=== PATIENT | male | born 1995 | race Two or more races ===

== ENCOUNTER 2019-05-05 23:34 | Inpatient (IN) | payer OTHER ==
[~2019-05-05] VITALS: Ht 180.3 cm; Wt 85.4 kg
--- NOTE | 2019-05-06 01:05 | NUR ---
RN OPEN NOTES RECEIVED PATIENT FROM [facility] DIRECT ADMIT VIA EMT. A/O X4. NO SIGNS OF DISTRESS OR DISCOMFORT. BREATHING EVEN AND UNLABORED. STATES PAIN IN R LOWER ABD IS 4/10 AND TOLERABLE AT THIS TIME. IV ACCESS IN LAC, PATENT AND INTACT, NO SIGNS OF REDNESS OR INFILTRATION. ORIENTED PATIENT TO UNIT AND ROOM. SKIN INTACT. BED IN LOW LOCKED POSITION WITH SIDE RAILS X2. CALL LIGHT WITHIN REACH. WILL CONTINUE TO MONITOR.
[2019-05-06 01:15] VITALS: BP 121/67
[2019-05-06] MEDS ORDERED: ONDANSETRON HCL/PF 4 MG/2 ML VIAL IV PRN (02:00)
[2019-05-06] MEDS ORDERED: PIPERACILLIN /TAZOBACTAM 3.375 G VIAL IV ONE (03:19)
[2019-05-06] MEDS: IV D5/ 0.9% NACL 1,000 ML IV PRN (03:30)
[2019-05-06 04:00] VITALS: BP 121/67
[2019-05-06] MEDS ORDERED: PIPERACILLIN /TAZOBACTAM 3.375 G in IV D5W 50 ML IV ONE (04:00)
[2019-05-06] MEDS ORDERED: PIPERACILLIN /TAZOBACTAM 3.375 G in IV D5W 50 ML IV SCH (06:00)
--- NOTE | 2019-05-06 06:56 | NUR ---
RN CLOSING NOTES PATIENT AWAKE IN BED. A/O X4. NO SIGNS OF DISTRESS OR DISCOMFORT. BREATHING EVEN AND UNLABORED. STATES PAIN IN R LOWER ABD IS 5/10 AND TOLERABLE AT THIS TIME. IV ACCESS IN LAC D5NS INFUSING, PATENT AND INTACT, NO SIGNS OF REDNESS OR INFILTRATION. ALL NEEDS MET. NO SIGNIFICANT CHANGES THROUGH THEN NIGHT. BED IN LOW LOCKED POSITION WITH SIDE RAILS X2. CALL LIGHT WITHIN REACH. WILL ENDORSE TO AM SHIFT FOR JESSICA.
[2019-05-06 07:01] LABS: BASOPHILS # (AUTO) 0.1 /CMM (0.0-0.2); BASOPHILS % (AUTO) 1.3 % (0.0-2.0); EOSINOPHILS % (AUTO) 1.9 % (0.0-6.0); HEMATOCRIT 38 % (39-51); HEMOGLOBIN 13.2 g/dL (13.5-17.5); LYMPHOCYTES # (AUTO) 2.2 /CMM (0.8-4.8); MEAN CORPUSCULAR HGB CONC 35 g/dl (31.0-36.0); MEAN CORPUSCULAR VOLUME 86 fL (80-96); MONOCYTES # (AUTO) 0.6 /CMM (0.1-1.30); MONOCYTES % (AUTO) 6.3 % (2.0-12.0); NEUTROPHILS # (AUTO) 6.8 /CMM (1.8-8.9); NEUTROPHILS % (AUTO) 68.5 % (43.0-81.0); PLATELET COUNT (AUTO) 217 /CMM (150-450); RED BLOOD CELL COUNT(AUTO) 4.41 MIL/uL (4.5-6.0); WHITE BLOOD COUNT (AUTO) 9.9 K/uL (4.3-11.0)
--- NOTE | 2019-05-06 07:34 | NUR ---
RN OPENING NOTE PT WAS RECEIVED IN BED AT LOWEST AND LOCKED POSITION WITH SIDE RAILS UP X2, A/ X4 BREATHING EVEN AND UNLABORED ON RA WITH NO S/S OF ANY DISTRESS BUT DOES COMPLAIN OF PAIN IN RLQ 4/5 OUT OF 10, IV IS PATENT AND INTACT WITH IVF RUNNING, SAFETY PRECAUTIONS IN PLACE, CALL LIGHT IN REACH, WILL MONITOR ACCORDINGLY
[2019-05-06 07:44] LABS: ALBUMIN 3.7 g/dL (3.4-5.0); BILIRUBIN,TOTAL 0.9 mg/dL (0.2-1.0); CALCIUM, SERUM 8.6 mg/dL (8.5-10.1); PHOSPHORUS 3.5 mg/dL (2.5-4.9); POTASSIUM 3.6 mmol/L (3.5-5.1); TOTAL PROTEIN, SERUM 7.1 g/dL (6.4-8.2)
[2019-05-06 08:00] VITALS: BP 112/76
--- NOTE | 2019-05-06 08:00 | NUR ---
RN NOTE [employer] INSTALLER MICHAEL FISHER AT BEDSIDE, INFORMED PT THAT SURGERY WILL BE CONSULTED FOR POSSIBLE APPENDECTOMY, PT AWARE
[2019-05-06] MEDS: FAMOTIDINE/PF INJ 20 MG/2 ML VIAL IV SCH ×2 (08:34→20:35)
[2019-05-06] MEDS: PIPERACILLIN /TAZOBACTAM 3.375 G in IV D5W 100 ML IV SCH ×2 (09:15→16:09)
--- NOTE | 2019-05-06 11:04 | NUR ---
RN NOTE MEDICAL RECORDS WAS CALLED AND INFORMED ABOUT NEEDING TO REQUEST INFORMATION FROM [facility]. THEY WERE MADE AWARE THAT THEY ONLY RELEASE INFORMATION. MEDICAL RECORD EMPLOYEE IS AWARE AND INFORMED TO FAX OVER THE RELEASE OF INFORMATION MEDICAL RECORDS FORM TO HER. MEDICAL RECORD FORM WAS FAXED TO OUR MEDICAL RECORD DEPARTMENT AND THEY WILL TRY TO OBTAIN THE CT RESULTS OF THE ABD/PELVIS AT THIS TIME.
--- NOTE | 2019-05-06 11:44 | NUR ---
RN NOTE RAE TORRES SPOKE TO PT MOTHER CANDELARIO VIA PHONE AND EXPLAINED TO HER THE OPTIONS FOR APPENDICITIS TX. INFORMED THAT THEY COULD EITHER GET APPENDECTOMY OR COURSE OF ABX FOR 2 DAYS. PT MOTHER SPOKE TO SON AND I WAS JUST INFORMED THAT PT WOULD LIKE TO JUST RECEIVE THE ABX AND ONLY GET SURGERY IF IT IS NEEDED BASED OFF OF CT RESULT THAT IS STILL PENDING ARRIVAL FROM [place] OR NO IMPROVEMENT SEEN. RAE TORRES MADE AWARE. RAE COSBY STATED THAT PT FOR NOW WILL CONTINUE TO BE NPO AND WILL UPDATE US ON WHEN HE CAN EAT. PT INFORMED AND MADE AWARE. WILL CONTINUE TO MONITOR ACCORDINGLY
--- NOTE | 2019-05-06 13:00 | NUR ---
RN NOTE MEDICAL RECORDS FAXED LAB RESULTS OBTAINED FROM [facility] AT THIS TIME. THEY WERE ASKED ABOUT CT OF ABD/PELVIS RESULT BUT STATED THAT THEY DID NOT HAVE THOSE RESULTS, THEY INFORMED ME THAT THEY WILL CALL [facility] AND CALL ME BACK
[2019-05-06 16:00] VITALS: BP 116/61
--- NOTE | 2019-05-06 18:21 | NUR ---
RN CLOSING NOTE PT IN BED AT LOWEST AND LOCKED POSITION WITH SIDE RAILS UP X2, A/ X4 BREATHING EVEN AND UNLABORED WITH NO DISTRESS OR COMPLAINTS AT THIS TIME, IV IS PATENT AND INTACT WITH IVF RUNNING, SAFETY PRECAUTIONS IN PLACE, CALL LIGHT IN REACH, ALL NEEDS ATTENDED TO, WILL ENDORSE TO NIGHT RN FOR JESSICA.
--- NOTE | 2019-05-06 19:15 | NUR ---
CHANGE OF SHIFT REPORT Patient in bed, awake. Tolerating RA. Reports abdominal discomfort, denies nausea no vomiting. IVF infusing, NPO. Instruction to use call light for assistance, verbalized understanding.
[2019-05-06 20:00] VITALS: BP 111/71
[2019-05-06] MEDS ORDERED: MORPHINE SULFATE INJ 2 MG/ML DISP.SYRIN IV PRN (20:30)
[2019-05-06] MEDS ORDERED: BUPIVACAINE MPF W/EPI 0.25% 30 ML VIAL ONE (21:33)
--- NOTE | 2019-05-06 21:44 | NUR ---
OFF UNIT Consent form in the chart. Patient to OR for surgery, Lap appendectomy by Dr. Licea.
[2019-05-06] MEDS ORDERED: MIDAZOLAM HCL 2 MG/2ML VIAL ONE (21:48)
[2019-05-06] MEDS ORDERED: FENTANYL PF 100MCG/2ML AMPUL ONE (21:49)
[2019-05-06] MEDS ORDERED: SCOPOLAMINE HBR 1 EA PATCH.TD72 TD ONE (21:49)
[2019-05-06] MEDS ORDERED: HYDROCODONE/APAP 5/325MG 1 EACH TABLET PO PRN (23:30)
[2019-05-06] MEDS ORDERED: ONDANSETRON HCL/PF 4 MG/2 ML VIAL ONE (23:32)
[2019-05-06 23:50] VITALS: BP 147/88
[2019-05-06] MEDS: MORPHINE SULFATE INJ 2 MG/ML DISP.SYRIN IV PRN (23:59)
[2019-05-07 00:10] VITALS: BP 123/74
[2019-05-07 00:23] VITALS: BP 124/70
[2019-05-07] MEDS: PIPERACILLIN /TAZOBACTAM 3.375 G in IV D5W 100 ML IV SCH ×3 (00:33→16:14)
[2019-05-07 00:53] VITALS: BP 119/68
[2019-05-07] MEDS: IV D5/ 0.9% NACL 1,000 ML IV PRN ×2 (01:10→20:55)
[2019-05-07] MEDS: MORPHINE SULFATE INJ 2 MG/ML DISP.SYRIN IV PRN ×2 (02:41→05:43)
--- NOTE | 2019-05-07 06:24 | NUR ---
END OF SHIFT REPORT Patient in bed, stable oxygen saturation on RA. S/p Lap appendectomy by Dr. Licea, abdomen lap site x3 Open to air. Incisional pain controlled with PRN Morphine 2mg IV. Patient voided without difficulty, no flatus yet. IVF infusing, Clear liquids diet, denies nausea, no vomiting. Encouraged IS, ambulation. Fall precaution maintained.
[2019-05-07 06:42] LABS: BASOPHILS % (AUTO) 0.2 % (0.0-2.0); HEMATOCRIT 38 % (39-51); LYMPHOCYTES # (AUTO) 0.8 /CMM (0.8-4.8); LYMPHOCYTES % (AUTO) 5.9 % (20.0-44.0); MEAN CORPUSCULAR HGB CONC 34 g/dl (31.0-36.0); MEAN CORPUSCULAR VOLUME 86 fL (80-96); MONOCYTES # (AUTO) 0.4 /CMM (0.1-1.30); MONOCYTES % (AUTO) 3.3 % (2.0-12.0); NEUTROPHILS # (AUTO) 12.1 /CMM (1.8-8.9); NEUTROPHILS % (AUTO) 90.6 % (43.0-81.0); PLATELET COUNT (AUTO) 225 /CMM (150-450); WHITE BLOOD COUNT (AUTO) 13.4 K/uL (4.3-11.0)
[2019-05-07 07:05] LABS: CALCIUM, SERUM 8.7 mg/dL (8.5-10.1); CREATININE 1.1 mg/dL (0.6-1.3); MAGNESIUM 1.8 mg/dL (1.8-2.4); PHOSPHORUS 3.7 mg/dL (2.5-4.9); POTASSIUM 4.1 mmol/L (3.5-5.1)
[2019-05-07 07:13] LABS: THYROID STIMULATING HORMONE 0.706 uIU/mL (0.358-3.74)
--- NOTE | 2019-05-07 07:24 | NUR ---
RN OPENING NOTE PT WAS RECEIVED IN BED AT LOWEST AND LOCKED POSITION WITH SIDE RAILS UP X2, A/ X4 BREATHING EVEN AND UNLABORED ON RA WITH NO S/S OF ANY DISTRESS AND NO CURRENT COMPLAINT OF ANY PAIN AT THIS TIME, IV IS PATENT AND INTACT WITH IVF RUNNING, SAFETY PRECAUTIONS IN PLACE, CALL LIGHT IN REACH, WILL MONITOR ACCORDINGLY
[2019-05-07 08:00] VITALS: BP 126/63
[2019-05-07] MEDS: FAMOTIDINE/PF INJ 20 MG/2 ML VIAL IV SCH ×2 (08:09→20:45)
[2019-05-07] MEDS: HYDROCODONE/APAP 5/325MG 1 EACH TABLET PO PRN ×2 (12:27→19:44)
[2019-05-07 16:00] VITALS: BP 115/62
--- NOTE | 2019-05-07 18:23 | NUR ---
RN CLOSING NOTE PT IN BED AT LOWEST AND LOCKED POSITION WITH SIDE RAILS UP X2, A/ X4 BREATHING EVEN AND UNLABORED ON RA WITH NO S/S OF ANY DISTRESS AND NO CURRENT COMPLAINT OF ANY PAIN AT THIS TIME, IV IS PATENT AND INTACT WITH IVF RUNNING, SAFETY PRECAUTIONS IN PLACE, CALL LIGHT IN REACH, ALL NEEDS ATTENDED TO, WILL ENDORSE TO NIGHT RN FOR JESSICA.
--- NOTE | 2019-05-07 19:30 | NUR ---
MS RN OPENING NOTE RECEIVED PATIENT IN BED. A/O X4. TOLERATING ROOM AIR. RESPIRATIONS ARE EVEN AND UNLABORED. NO S/S SOB. REQUESTING PAIN MEDICATION, INFORMED PATIENT I WILL BRING PAIN MEDICATION ONCE RECEIVED REPORT ON ALL MY PATIENTS, PATIENT WAS ACKNOWLEDGED. IN NO APPARENT DISTRESS. IV ACCESS IN LAC #18 PATENT AND SALINE LOCKED. BED IS LOW AND LOCKED, SIDE RAILS UP X2, HOB ELEVATED 70 DEGREES. FAMILY AT THE BEDSIDE, CALL LIGHT WITHIN REACH. WILL CONTINUE TO MONITOR.
--- NOTE | 2019-05-07 19:45 | NUR ---
MS RN NOTE ADMINISTERED PRN NORCO 5/325 X2 FOR PAIN 8/10 IN ABDOMEN. WILL CONTINUE TO MONITOR.
[2019-05-07 20:00] VITALS: BP 125/76
[2019-05-08] MEDS: PIPERACILLIN /TAZOBACTAM 3.375 G in IV D5W 100 ML IV SCH ×3 (00:26→16:58)
[2019-05-08] MEDS: HYDROCODONE/APAP 5/325MG 1 EACH TABLET PO PRN ×2 (05:21→12:08)
--- NOTE | 2019-05-08 05:21 | NUR ---
MS RN NOTE ADMINISTERED PRN NORCO 5/325 X2 FOR PAIN 8/10 IN ABDOMEN. WILL CONTINUE TO MONITOR.
--- NOTE | 2019-05-08 06:32 | NUR ---
MS RN CLOSING NOTE PATIENT IN BED. A/O X4. REMAINS TOLERATING ROOM AIR. RESPIRATIONS ARE EVEN AND UNLABORED. NO S/S SOB. PAIN MANAGED WITH 5/325 NORCO X2. NO DISTRESS NOTED. IV ACCESS MAINTAINED IN LAC #18 PATENT AND RUNNING D5NS@100ML/HR. BED REMAINS LOW AND LOCKED, SIDE RAILS UP X2, HOB FLAT. CALL LIGHT WITHIN REACH. WILL ENDORSE TO NEXT SHIFT.
[2019-05-08 06:36] LABS: BASOPHILS # (AUTO) 0.1 /CMM (0.0-0.2); BASOPHILS % (AUTO) 0.7 % (0.0-2.0); EOSINOPHILS % (AUTO) 0.9 % (0.0-6.0); HEMATOCRIT 38 % (39-51); HEMOGLOBIN 12.8 g/dL (13.5-17.5); LYMPHOCYTES # (AUTO) 2.7 /CMM (0.8-4.8); LYMPHOCYTES % (AUTO) 26.4 % (20.0-44.0); MEAN CORPUSCULAR HGB CONC 34 g/dl (31.0-36.0); MEAN CORPUSCULAR VOLUME 86 fL (80-96); MONOCYTES # (AUTO) 0.7 /CMM (0.1-1.30); MONOCYTES % (AUTO) 6.8 % (2.0-12.0); NEUTROPHILS # (AUTO) 6.6 /CMM (1.8-8.9); NEUTROPHILS % (AUTO) 65.2 % (43.0-81.0); PLATELET COUNT (AUTO) 234 /CMM (150-450); RED BLOOD CELL COUNT(AUTO) 4.39 MIL/uL (4.5-6.0); WHITE BLOOD COUNT (AUTO) 10.1 K/uL (4.3-11.0)
[2019-05-08 06:56] LABS: CALCIUM, SERUM 8.6 mg/dL (8.5-10.1); CREATININE 1.1 mg/dL (0.6-1.3); POTASSIUM 3.6 mmol/L (3.5-5.1)
[2019-05-08 07:38] VITALS: BP 94/64
--- NOTE | 2019-05-08 08:00 | NUR ---
MS RN OPENING NOTE PATIENT RECEIVED RESTING IN BED. S/P APPENDECTOMY 05/06. PATIENT SHOWS NO SIGNS OF RESPIRATORY/ACUTE DISTRESS. PATIENT STATES "NO PAIN." BED IN LOWEST POSITION, SIDE RAILS X2 IN UPRIGHT POSITION. CALL LIGHT WITHIN REACH AND PATIENT IS AWARE OF HOW TO CALL FOR ASSISTANCE WHEN NEEDED. WILL CONTINUE TO MONITOR.
[2019-05-08] MEDS: FAMOTIDINE/PF INJ 20 MG/2 ML VIAL IV SCH (08:42)
[2019-05-08] MEDS: DOCUSATE SODIUM 100 MG CAPSULE PO SCH ×2 (10:49→17:00)
[2019-05-08] MEDS ORDERED: DOCU100C36 PO (11:55)
[2019-05-08] MEDS ORDERED: HYDR-4384 PO (11:55)
[2019-05-08] MEDS ORDERED: AMOX500C2 PO (11:55)
[2019-05-08] MEDS ORDERED: ONDA4TAB5 PO (11:55)
[2019-05-08 16:09] VITALS: BP 108/56
--- NOTE | 2019-05-08 16:58 | NUR ---
MS RN NON-ADMIN MEDICATION PATIENT IS DISCHARGED TO HOME. PATIENT AND FAMILY AT BEDSIDE STATED THEY WILL LEAVE BY 1830. IV REMOVED, INTACT. IV ABX NOT GIVEN. PATIENT HAS ORAL ABX ORDERED TO TAKE AT HOME.
--- NOTE | 2019-05-08 18:16 | NUR ---
MS GALLEY BOY NOTE PATIENT CLEARED FOR DISCHARGE TO HOME IN PRIVATE CAR BY MICHAEL CONTENT CURATOR AND QIAN CONTENT CURATOR. PATIENT MEDICALLY STABLE FOR DISCHARGE. PATIENT A/O X4. PATIENT IN NO ACUTE DISTRESS. NO SOB NOTED. VITAL SIGNS WNL. DISCHARGE INSTRUCTIONS AND MEDICATION RECON VERBALIZED TO PATIENT AND FAMILY AT THE BEDSIDE, PATIENT VERBALIZED UNDERSTANDING. IV REMOVED, PRESSURE DRESSING APPLIED. ID BAND REMOVED. NO SIGNS OF SKIN BREAKDOWN. PATIENT HAS ALL BELONGINGS WITH THEM. PATIENT AND FAMILY STATED THEY ARE "WAITING FOR TRAFFIC TO SUBSIDE AND WILL LEAVE THE UNIT BY 183". PATIENT KEPT CLEAN AND DRY AND COMFORTABLE THROUGHOUT SHIFT. NEEDS AND CONCERNS WERE ADDRESSED. MD AWARE OF DISCHARGE.
== END 2019-05-08 18:37 | disposition home or self-care (01) | DRG 340 ==
LOC: MED 05-06 00:54
PROVIDERS: ADMIT Nurse Practitioner Acute Care; ATTEND Nurse Practitioner Acute Care
PROC: 0DTJ4ZZ Resection of Appendix, Percutaneous Endoscopic Approach (ICD-10-PCS; principal; 2019-05-06)
DX: K35.32 Acute appendicitis with perforation, localized peritonitis, and gangrene, without abscess (principal); D64.9 Anemia, unspecified; E66.3 Overweight; Z68.26 Body mass index [BMI] 26.0-26.9, adult
CPT/HCPCS: 36415; 80048-TC; 80053-TC; 83605-TC; 83735-TC; 84100-TC; 84443-TC; 85025-TC; 85610-TC; 86850-TC; 87081-TC; A4217; G0378; J1100; J2001; J2250; J2270; J2405; J2543; J2704; J3010; J3490; J7042; J7060